=== PATIENT | female | born 1985 | race Caucasian/White ===

== ENCOUNTER 2016-12-17 10:34 | Day surgery (SDC) | payer BC ==
[~2016-12-17 10:34] MED LIST: Midazolam 1 MG/ML 2 ML SDV ONE; Propofol 200 MG/20 ML SDV ONE; fentaNYL 100 MCG/2 ML SDV ONE
[2016-12-17] MEDS ORDERED: Lactated Ringers 1,000 ML IV ONE (11:31)
[2016-12-17] MEDS ORDERED: Cyanocobalamin (Vitamin B12) 1,000 MCG/ML SDV IM ONE (11:32)
[2016-12-17] MEDS ORDERED: Glycopyrrolate 0.2 MG/ML 2 ML SDV IVPUSH ONE (11:33)
[2016-12-17] MEDS ORDERED: Dextrose 5%-Lactated Ringers 1,000 ML IV SCH (12:30)
[2016-12-17 12:45] VITALS: BP 130/86
--- NOTE | 2016-12-24 12:13 | OR ---
DATE OF PROCEDURE: 12/17/2016 PREOPERATIVE DIAGNOSIS: Weight regain, status post gastric bypass. POSTOPERATIVE DIAGNOSES: Weight regain, status post gastric bypass, with an extremely large gastric pouch and an enlarged gastrojejunostomy associated with gastrogastric fistula. OPERATIVE PROCEDURE: Upper GI endoscopy with biopsies of gastric wall for CLOtest. ANESTHESIA: IV sedation. INDICATION FOR PROCEDURE: This is a 31-year-old status post Tony-en-Y gastric bypass done in [facility] in [place] in August 2009. Her preoperative weight was 250 pounds, and she did get initially a very good result down to 157 pounds. In the last year, she has had progressive weight regain, and the plan was to proceed with upper GI endoscopy to evaluate possible corrective features of the bypass, given the previous good results. Potential risks including bleeding and perforation were discussed, and the patient wishes to proceed. DETAILS OF PROCEDURE: The patient was taken to the operating room and placed in a left lateral decubitus position. IV sedation was administered after which the upper GI endoscope was passed orally through the length of the esophagus and into the gastric pouch, and from there through the gastrojejunostomy and roughly 20 cm into the Tony limb. As one approached the esophagus and the EG junction area, those were unremarkable. The patient was noted to have 3 findings all likely contributing to her weight regain. The first was a very large gastric pouch, measuring around 11 cm from the gastrojejunostomy to the mucosal esophagogastric junction. The gastrojejunostomy was likewise extremely large, probably in the range of 4 to 5 cm. In addition to this, adjacent to the gastric pouch in its distal left lateral aspect, there was a gastrogastric fistula. The gastroscope was able to be manipulated through that, so it was at least 1 cm in diameter, and the remainder of the stomach had some bile within it. There was some redness around the fistula, likely associated with some intermittent bile reflux into the pouch from the previously bypassed stomach. At this point, biopsy was obtained from the gastric pouch and sent for CLOtest for H. pylori. Minimal bleeding from the biopsy sites was seen, and the procedure concluded. The patient would be a very good candidate for a revision, given her initial good result. We will contact her insurance agency to attempt to obtain a prior authorization. This would likely need to be an open approach, given the patient's original surgery had the Tony limb brought up through a retrogastric-retrocolic approach. Jeremy Dawson MD /[id number]
== END 2016-12-17 11:34 ==
LOC: MERGE 10:34 → JP.SDS 10:34
PROVIDERS: ATTEND Surgery
DX: K95.89 Other complications of other bariatric procedure (principal); R63.5 Abnormal weight gain
CPT/HCPCS: 43239; 87081; J2250; J2704; J3010; J3420; J7120; J3490

== ENCOUNTER 2017-03-26 08:23 | Inpatient (IN) | payer BC ==
[2017-03-26] MEDS ORDERED: Gabapentin 300 MG Cap PO ONE (08:45)
[2017-03-26] MEDS ORDERED: Celecoxib 200 MG Cap PO ONE (08:45)
[2017-03-26] MEDS ORDERED: Scopolamine 1.5 MG Transdermal Patch TRDERM SCH (08:45)
[2017-03-26] MEDS ORDERED: Acetaminophen 500 MG Tab PO ONE (08:45)
[2017-03-26] MEDS ORDERED: cefOXitin 2 GM Vial ONE (09:14)
[2017-03-26] MEDS ORDERED: Dextrose 5%-Lactated Ringers 1,000 ML IV SCH (09:30)
[2017-03-26] MEDS ORDERED: Succinylcholine 200 MG/10 ML MDV ONE (10:42)
[2017-03-26] MEDS ORDERED: Neostigmine Methylsulfate 1 MG/ML 5 ML Syringe ONE (10:42)
[2017-03-26] MEDS ORDERED: Ondansetron 4 MG/2 ML SDV ONE (10:42)
[2017-03-26] MEDS ORDERED: Dexamethasone 4 MG/ML SDV ONE (10:42)
[2017-03-26] MEDS ORDERED: Propofol 200 MG/20 ML SDV ONE (10:42)
[2017-03-26] MEDS ORDERED: Rocuronium 50 MG/5 ML Vial ONE (10:42)
[2017-03-26] MEDS ORDERED: Glycopyrrolate 0.2 MG/ML 5 ML MDV ONE (10:42)
[2017-03-26] MEDS ORDERED: Lidocaine 2% 100 MG/5 ML Syringe IVPUSH ONE (10:45)
[2017-03-26] MEDS ORDERED: Ropivacaine 56 ML, Dexamethasone 8 MG, EPINEPHrine 0.4 MG, Sodium Chloride 0.9% 21.6 ML NERVRT ONE ×4 (10:45)
[2017-03-26] MEDS ORDERED: Ketamine 500 MG/5 ML MDV IV ONE (10:45)
[2017-03-26] MEDS: cefOXitin 2 GM in Sodium Chloride 0.9% 50 ML IV ONE ×2 (13:05→16:34)
[2017-03-26] MEDS ORDERED: fentaNYL 100 MCG/2 ML SDV ONE (14:51)
[2017-03-26] MEDS ORDERED: Lactated Ringers 1,000 ML ONE (14:55)
[2017-03-26] MEDS ORDERED: fentaNYL 100 MCG/2 ML SDV IVPUSH ONE (16:00)
[2017-03-26] MEDS: Lidocaine 0.4%/D5W 2 GM/500 ML BAG IV SCH ×2 (16:35→16:59)
[2017-03-26] MEDS: Dextrose 5%-Lactated Ringers 1,000 ML IV SCH ×2 (16:59→23:54)
[2017-03-26] MEDS ORDERED: Labetalol 20 MG/4 ML Syringe IVPUSH PRN (17:00)
[2017-03-26] MEDS ORDERED: MVI, Adult with Vitamin K 10 ML, Thiamine 200 MG, Chromium/Copper/Mang/Selen/Zn 1 ML in... IV SCH ×4 (17:00)
[2017-03-26] MEDS ORDERED: hydrOXYzine HCl 100 MG/2 ML SDV IM PRN (17:00)
[2017-03-26] MEDS ORDERED: Ondansetron 4 MG/2 ML SDV IVPUSH PRN (17:00)
[2017-03-26] MEDS ORDERED: diphenhydrAMINE 50 MG/ML SDV IVPUSH PRN (17:00)
[2017-03-26] MEDS ORDERED: Metoclopramide 10 MG/2 ML SDV IVPUSH PRN (17:00)
[2017-03-26] MEDS ORDERED: Pantoprazole 40 MG Vial IVPUSH SCH (18:00)
[2017-03-26] MEDS: cefOXitin 2 GM in Sodium Chloride 0.9% 50 ML IV SCH ×2 (18:15→23:46)
[2017-03-26] MEDS: Acetaminophen Soln 650 MG/20.3 ML UD Cup PO SCH ×2 (18:16→23:47)
[2017-03-26] MEDS: Heparin Sodium 5,000 Units/ML Vial SUBCUT SCH (20:08)
[2017-03-26] MEDS: Gabapentin 250 MG/5 ML Solution ML 470 ML Bottle PO SCH (21:05)
[2017-03-26] MEDS: QUEtiapine 100 MG Tab ONE ×2 (21:41→21:45)
[2017-03-27] MEDS ORDERED: Iohexol 647 MG/ML 50 ML SDV PO SCH (03:30)
[2017-03-27] MEDS: Lidocaine 0.4%/D5W 2 GM/500 ML BAG IV SCH (05:22)
[2017-03-27] MEDS: cefOXitin 2 GM in Sodium Chloride 0.9% 50 ML IV SCH ×4 (05:23→23:25)
[2017-03-27] MEDS: Acetaminophen Soln 650 MG/20.3 ML UD Cup PO SCH ×4 (05:24→23:44)
[2017-03-27] MEDS: Dextrose 5%-Lactated Ringers 1,000 ML IV SCH (07:10)
[2017-03-27] MEDS: Heparin Sodium 5,000 Units/ML Vial SUBCUT SCH ×2 (07:12→21:29)
[2017-03-27] MEDS: Celecoxib 200 MG Cap PO SCH (07:12)
[2017-03-27] MEDS ORDERED: Dextrose 5%-Lactated Ringers 1,000 ML IV SCH (07:40)
[2017-03-27] MEDS ORDERED: Ondansetron 4 MG Tab.DIS PO PRN (07:43)
--- NOTE | 2017-03-27 08:43 | OR ---
DATE OF PROCEDURE: 03/26/2017 PREOPERATIVE DIAGNOSIS: Recurrent morbid obesity associated with a large gastric pouch and gastrogastric fistula. POSTOPERATIVE DIAGNOSES: 1. Recurrent morbid obesity associated with a large gastric pouch and gastrogastric fistula. 2. Paraesophageal diaphragmatic hernia. OPERATIVE PROCEDURES: Diagnostic laparoscopy with; 1. Laparoscopic revision of Tony-en-Y gastric bypass (22783). 2. Laparoscopic repair of paraesophageal diaphragmatic hernia (33751). ANESTHESIA: General. DEVELOPMENT EXPERT: Nara Humphrey PA-C. INDICATION FOR PROCEDURE: This is a 32-year-old female presenting with recurrent morbid obesity, status post previous Tony-en-Y gastric bypass in [place]. Recent upper endoscopy showed a markedly enlarged gastric pouch along with a widened gastrojejunostomy and a gastrogastric fistula. This all has resulted in the patient regaining significant weight. Plan is to proceed with revision of the gastric bypass procedure. This will include both root ligation of the gastrogastric fistula along with reduction of pouch size, and also then revise the small bowel component to a more distal configuration. Potential risks of the procedure including bleeding, infection, leaks from various GI tract closures, problems with excessive malabsorption requiring potential additional revisional procedures as well as the remote possibility of cardiopulmonary, septic, or hemorrhagic complications leading to were all discussed, and the patient wishes to proceed. DETAILS OF PROCEDURE: The patient was taken to the operating room, where after general endotracheal anesthesia was induced, she was placed in a lithotomy position, and the abdomen prepped and draped. 15 cm inferior and 5 cm left of xiphoid process, a transverse incision was made, and the peritoneal cavity entered under direct vision with an Optiview trocar and inflated to 15 mmHg pressure with CO2. Laparoscope was reinserted. No underlying trocar insertion site injuries were seen. Following this, under direct vision from within, bilateral subcostal transversus abdominis plane blocks were placed. At that point, 5 additional trocars were placed across the upper and midabdomen. Attention was initially taken to the area of the proximal gastric pouch. The patient had the liver retracted anteriorly and some adhesions from the area around the gastric pouch and gastrojejunostomy were taken down. At that point, a 32-Romansh Andrzej tube was placed per Anesthesia through the gastric pouch and from there into the gastrojejunostomy to clearly delineate where it was located. This then allowed dissection along the left side of the gastric pouch, and the area of the gastrogastric fistula was evident near the angle of His. This was from the gastric pouch and divided with a TATYANA eldridge load. The pouch itself was noted to be strikingly elongated and was measured at 11 cm from the gastroesophageal junction to the gastrojejunostomy. Even though this was a retrocolic retrogastric loading of the Tony limb, the entire pouch and the proximal end of the Tony limb adjacent to the gastrojejunostomy was quite easily visualized. This was dissected free. At that point, the Andrzej tube was removed, and the gastric pouch was then dissected posteriorly with an angulation up toward the angle of His. This was then divided with 2 firings of the TATYANA black loads, creating a new gastric pouch with the distal-most component of that being perhaps 3 cm below the esophagogastric junction. At that point, both staple lines were noted to be intact. At this point, the remaining attachments of the stomach and gastrojejunostomy below the new staple line were divided with Harmonic Scalpel along with the aid of some intermittent use of staplers. The colon was then retracted anteriorly. The adhesions at the point where the Tony limb passed into the transverse mesocolon were divided. This then allowed eventual reduction of the distally-divided stomach and gastrojejunostomy and proximal end of the Tony limb beneath the transverse mesocolon. The small bowel adjacent to the gastrojejunostomy was then divided with a TATYANA eldridge load and that specimen delivered through the lateral left trocar site. The Tony limb was then inspected and found to be only 45 cm. This was felt to be inadequately short. Given this, the Tony limb was divided just proximal to the jejunojejunostomy with a TATYANA eldridge load and underlying mesentery divided with Harmonic scalpel and that specimen of small bowel was then also delivered from the field. At this point, the limb lengths were assessed and final determination, given that we significantly reduced the amount of the gastric pouch and the new gastrojejunostomy, would likely also be of a relatively smaller caliber. An overaggressive distalization of the Tony limb would appear to be inadvisable. At that point, a decision was made to proceed with an alimentary limb of 150 cm with biliary pancreatic limb of 200 cm, and this left after counting out the length of the small bowel, a common limb of 400 cm. At that point, the small bowel was traced from the ligament of Treitz downward across the region of jejunojejunostomy and then continued around the bowel that had been the common limb beyond that, to a point 200 cm distal to ligament of Treitz. The small bowel was divided at that point, and the small bowel was then traced out an additional 150 cm, where the [id number]-jo-jelp enteroenterostomy was accomplished with internal firing of the Endo-TATYANA 60 mm stapler. Common opening was then closed transversely with the same stapler, angles anastomosed, and mesenteric defect were approximated with some 0 Ethibond sutures along with fibrin sealant. The new Tony limb easily came up to the area of the gastric pouch without difficulty. At this point, the anvil of a 25-mm EEA stapler was attached to [place] sump type tube, the latter was brought down through the mouth, taken out through a small opening in the gastric pouch, allowing the anvil likewise to be pulled down to within the gastric pouch. The divided end of the Tony limb was then opened and the main body of EEA stapler passed several centimeters in the lumen of the small bowel, brought up the anvil and united with it, thus creating the gastrojejunostomy. Upon removal of the stapler, double donuts of mucosa were noted within it. The small bowel was closed off with a vascular staple line. Gastrojejunostomy was reinforced with some 3-0 Vicryl seromuscular stitch along with fibrin sealant. The patient was noted, along the course of the operation, to have a significant diaphragmatic hernia anteriorly. The peritoneum overlying this was incised and reflected downward, and an anterior repair of the diaphragmatic hernia was accomplished with 0 Ethibond sutures reinforced with PTFE pledgets. At that point, a leak test was accomplished with injection of 120 mL of air into the gastric pouch while submerged within cefoxitin-containing saline solution. No leaks were identified. A single Josh-Andrea drain was taken out through the left lateral trocar site and positioned adjacent to the gastrojejunostomy and from there up into the splenic fossa. The trocars were removed, and the peritoneal cavity deflated. Incisions were closed with some 4-0 Vicryl skin stitch as was the drain affixed, and the patient was taken to the recovery room in a satisfactory condition. Physician clinic assistant, Nara Humphrey, played an essential role in assisting in this case, helping to position the patient, retract structures as needed, as well as suturing and cutting sutures when indicated. Her presence improved patient safety and decreased the operative time. Jeremy Dawson MD /[id number]
--- NOTE | 2017-03-27 09:22 | PN ---
DATE OF SERVICE: 03/27/2017 SUBJECTIVE: Ny is postop day #1. Oral intake was 400. Temp max 99.4. She has been up ambulating. VIANNEY drain put out 124 mL of a light pink serosanguineous drainage. She has no concerns or questions this morning. OBJECTIVE: GENERAL: Ny is a 32-year-old female. She is alert and orientated. VITAL SIGNS: TPR 99.3, 73, 16, and blood pressure 142/87. HEENT: Negative. NECK: Supple. HEART: Regular rate and rhythm. LUNGS: Clear. ABDOMEN: VIANNEY drain intact. Dressings are dry and intact. Abdominal binder is on. EXTREMITIES: Without peripheral edema. ASSESSMENT: Laparoscopic revision of Tony-en-Y gastric bypass surgery and repair of diaphragmatic hernia for recurrent morbid obesity associated with large gastric pouch, gastrogastric fistula, and paraesophageal diaphragmatic hernia. Date of surgery, 03/26/2017. PLAN: 1. Step-2 with no cereal gastric bypass diet. 2. Decrease IV to 100 mL/hour. 3. Dressing off, may shower. 4. Communication order to give 3 med cups at bedside to drink 3 per hour, record. 5. Zofran ODT 4 mg sublingual q.4 hours p.r.n. nausea. 6. To start Effexor 150 mg p.o. b.i.d. 7. Ambulate 6 times daily. 8. Good pulmonary toilet. 9. We will evaluate p.r.n. or in a.m. Nara Humphrey PA-C /[id number]
[2017-03-27] MEDS: Venlafaxine 75 MG Cap.ER PO SCH ×2 (09:28→21:28)
[2017-03-27] MEDS: Gabapentin 250 MG/5 ML Solution ML 470 ML Bottle PO SCH ×3 (09:28→21:26)
[2017-03-27] MEDS: SCOPOLAMINE PATCH CHECK TOP SCH (09:28)
--- NOTE | 2017-03-27 11:59 | CR ---
Upper GI. Findings: Limited examination to evaluate Tony-en-Y. No evidence for contrast leakage.
[2017-03-28] MEDS: Acetaminophen Soln 650 MG/20.3 ML UD Cup PO SCH ×2 (05:36→11:45)
[2017-03-28] MEDS: Venlafaxine 75 MG Cap.ER PO SCH (08:42)
[2017-03-28] MEDS: Celecoxib 200 MG Cap PO SCH (08:43)
[2017-03-28] MEDS: Heparin Sodium 5,000 Units/ML Vial SUBCUT SCH (08:45)
[2017-03-28] MEDS: SCOPOLAMINE PATCH CHECK TOP SCH (08:46)
[2017-03-28] MEDS: Gabapentin 250 MG/5 ML Solution ML 470 ML Bottle PO SCH (08:55)
[2017-03-28] MEDS ORDERED: Cyanocobalamin (Vitamin B12) 1,000 MCG/ML SDV IM ONE (09:00)
--- NOTE | 2017-03-28 10:20 | DISCH ---
ADMISSION DIAGNOSES: 1. Status post Tony-en-Y gastric bypass surgery. 2. Weight regain. 3. Depression and anxiety. 4. Eating disorder. 5. Vitamin D deficiency. 6. Iron deficiency. 7. Urinary incontinence with urethrosphincteric incompetence, status post bladder tumor. DISCHARGE DIAGNOSES: Diagnostic laparoscopy with laparoscopic revision of Tony-en-Y gastric bypass and laparoscopic repair of paraesophageal diaphragmatic hernia for recurrent morbid obesity associated with large gastric pouch and gastrogastric fistula, and paraesophageal diaphragmatic hernia. Date of surgery, 03/26/2017. HISTORY: Ny is a 32-year-old female presenting with recurrent morbid obesity, status post previous Tony-en-Y gastric bypass surgery in [place]. Recent upper endoscopy showed a markedly enlarged gastric pouch along with widened gastrojejunostomy and the gastrogastric fistula. After preoperative evaluation and discussion of possible risks and possible complications, she wished to proceed with surgical procedure. HOSPITAL COURSE: Ny had her surgery on 03/26/2017. She had no operative complications. On postop day #1, she was started on a step-2 gastric bypass diet without cereal. Her activity was good. Her pain was well managed. She received dietary instructions. On postop day #2, she was able to be discharged to home. PHYSICAL EXAMINATION: GENERAL: Ny is a 32-year-old female. VITAL SIGNS: Height is 5 feet 7 inches. Weight is 248 pounds. TPR is 98.9, 75, 18, and blood pressure 132/86. HEENT: Negative. NECK: Supple. HEART: Regular rate and rhythm. LUNGS: Clear. ABDOMEN: 4x4s over VIANNEY drain sites. Sutures in place. Abdominal binder has been on. EXTREMITIES: Without peripheral edema. DISPOSITION: Discharged to home. CONDITION: Stable and improving. FOLLOWUP APPOINTMENT: With Nara Humphrey PA-C, on 04/02/2017 at [place], [place], at 8:30 a.m. DISCHARGE MEDICATIONS: Home medications; 1. Tylenol 650 mg/20.3 mL every 6 hours for 2 weeks. 2. Zofran ODT 4 mg q.4 hours p.r.n. nausea. 3. Celebrex 200 mg p.o. daily, #14. She has already picked this up from the pharmacy. 4. Home medications to resume; Seroquel 300 mg at bedtime, Effexor XR 150 mg twice daily. 5. She is to discontinue taking her calcium, vitamin D3, Vitron-C, and multivitamin until her first clinic visit postoperatively. DISCHARGE DIET: Step-2 gastric bypass diet without cereal for 2 weeks. ACTIVITY: No lifting greater than 10 pounds for 2 weeks. Driving, do not drive for 1 week. Shower/bathing, may shower. Keep site clean and dry. Wear abdominal binder for 2 weeks and then as tolerated. DISCHARGE INSTRUCTIONS: Notify provider if any fever, increased pain, nausea, or vomiting. Special instruction; use incentive spirometer 10 times every hour while awake.
[2017-03-28 10:23] VITALS: BP 136/86
== END 2017-03-28 13:05 | disposition home or self-care (01) | DRG 403 ==
LOC: JP.SDS 08:23 → JP.SDSSCHI 08:32 → EDSTATUS 13:30 → JP.MS 15:30
PROVIDERS: ADMIT Surgery; ATTEND Surgery
PROC: 0D164ZA Bypass Stomach to Jejunum, Percutaneous Endoscopic Approach (ICD-10-PCS; principal; 2017-03-26)
PROC: 0BQT4ZZ Repair Diaphragm, Percutaneous Endoscopic Approach (ICD-10-PCS; 2017-03-26)
PROC: 0DBA4ZX Excision of Jejunum, Percutaneous Endoscopic Approach, Diagnostic (ICD-10-PCS; 2017-03-26)
PROC: 0DB64ZX Excision of Stomach, Percutaneous Endoscopic Approach, Diagnostic (ICD-10-PCS; 2017-03-26)
DX: E66.01 Morbid (severe) obesity due to excess calories (principal); Z68.37 Body mass index [BMI] 37.0-37.9, adult; F32.9 Major depressive disorder, single episode, unspecified; F41.9 Anxiety disorder, unspecified; E53.8 Deficiency of other specified B group vitamins; E55.9 Vitamin D deficiency, unspecified; K44.9 Diaphragmatic hernia without obstruction or gangrene; Z98.84 Bariatric surgery status; Z98.0 Intestinal bypass and anastomosis status; R63.5 Abnormal weight gain; K31.6 Fistula of stomach and duodenum; K31.89 Other diseases of stomach and duodenum; N36.8 Other specified disorders of urethra; R32 Unspecified urinary incontinence
CPT/HCPCS: 36415; 74240; 74240-26; 80048; 82962; 83735; 83880; 84100; 85027; 86850; 86900; 86901; 88307; A9270-GY; C9113; J0171; J0330; J0694; J1100; J1644; J2001; J2405; J2704; J2710; J2795; J3010; J3411; J3420; J7030; J7040; J7042; J7050; J7120; Q9967